=== PATIENT | female | born 1990 | race African-American/Black ===

== ENCOUNTER 2020-07-12 16:35 | Emergency (ER) | payer MEDICAID ==
[~2020-07-12] VITALS: Ht 160 cm; Wt 40.0 kg
--- NOTE | 2020-07-12 17:09 | ED.ADGEN ---
General Adult EDM: Chief Complaint: SUICDAL IDEATION HPI: HPI: Patient is a 30 year old female brought in by EMS for psychiatric evaluation. Patient states she has had suicidal ideations since noon today. Patient states it was triggered by her daughter being taken out of her home due to safety issues. Patient states she has 2 other children who live with her. Patient that she was thinking of cutting her wrists with a knife was tried a sharp event but unable to get [place]. Did not injure herself and has no wounds. Denies any ingestions. Patient states she has no psychiatric history up until 2 months ago. Patient states she had a suicide attempt by jumping out of a two- story window. Was seen at [facility] and discharged with a safety plan, given 1 dose of Risperdal. Patient has been following up with the guidance Center since then. Patient states she does not have any hallucinations but she does not feel like she knows who she is anymore. Has family history of depression, bipolar, schizophrenia and close feeling members including mother Review of Systems: Review of Systems: All other systems within normal limits except for as noted in the HPI Allergies: Allergies: Allergies Coded Allergies Type Severity Reaction Last Updated Verified No Known Drug Allergies 07/12/20 No Physical Exam: PE: Constitutional: Well developed, well nourished, no acute distress, non-toxic appearance. [] HENT: Normocephalic, atraumatic, bilateral external ears normal, nose normal. [] Eyes: PERRLA, conjunctiva normal, no discharge. [] Neck: No rigidity, supple, no stridor. [] Cardiovascular: Regular rate and rhythm, brisk cap refill [] Lungs & Thorax: Non labored symmetric respirations, no tachypnea or respiratory distress [] Abdomen: Soft, nondistended. Skin: Warm, dry, no erythema, no rash. [] Back: Unremarkable Extremities: No deformities, range of motion grossly intact, no lower extremity edema [] Neurologic: Alert and oriented X 3, no focal deficits noted. [] Psychologic: Affect normal, judgement normal, mood normal. [] Current Patient Data: Labs: Laboratory Tests Test 07/12/20 17:18 White Blood Count 4.9 x10^3/uL (4.0-11.0) Red Blood Count 3.95 x10^6/uL (3.50-5.40) Hemoglobin 12.0 g/dL (12.0-15.5) Hematocrit 36.6 % (36.0-47.0) Mean Corpuscular Volume 93 fL (79-100) Mean Corpuscular Hemoglobin 31 pg (25-35) Mean Corpuscular Hemoglobin Concent 33 g/dL (31-37) Red Cell Distribution Width 14.8 % (11.5-14.5) H Platelet Count 223 x10^3/uL (140-400) Neutrophils (%) (Auto) 35 % (31-73) Lymphocytes (%) (Auto) 54 % (24-48) H Monocytes (%) (Auto) 9 % (0-9) Eosinophils (%) (Auto) 2 % (0-3) Basophils (%) (Auto) 1 % (0-3) Neutrophils # (Auto) 1.7 x10^3/uL (1.8-7.7) L Lymphocytes # (Auto) 2.6 x10^3/uL (1.0-4.8) Monocytes # (Auto) 0.4 x10^3/uL (0.0-1.1) Eosinophils # (Auto) 0.1 x10^3/uL (0.0-0.7) Basophils # (Auto) 0.1 x10^3/uL (0.0-0.2) Sodium Level 144 mmol/L (136-145) Potassium Level 3.7 mmol/L (3.5-5.1) Chloride Level 105 mmol/L (98-107) Carbon Dioxide Level 27 mmol/L (21-32) Anion Gap 12 (6-14) Blood Urea Nitrogen 17 mg/dL (7-20) Creatinine 0.7 mg/dL (0.6-1.0) Estimated GFR (Cockcroft-Gault) 98.3 BUN/Creatinine Ratio 24 (6-20) H Glucose Level 90 mg/dL (70-99) Calcium Level 8.4 mg/dL (8.5-10.1) L Magnesium Level 2.1 mg/dL (1.8-2.4) Total Bilirubin 0.3 mg/dL (0.2-1.0) Aspartate Amino Transferase (AST) 14 U/L (15-37) L Alanine Aminotransferase (ALT) 25 U/L (14-59) Alkaline Phosphatase 52 U/L (46-116) Total Protein 6.9 g/dL (6.4-8.2) Albumin 3.9 g/dL (3.4-5.0) Albumin/Globulin Ratio 1.3 (1.0-1.7) Salicylates Level 3.6 mg/dL (2.8-20.0) Salicylate Last Dose Date Salicylate Last Dose Time Acetaminophen Level < 2 mcg/ml (10-30) L Acetaminophen Last Dose Date Acetaminophen Last Dose Time Ethyl Alcohol Level < 10 mg/dL (0-10) Laboratory Tests 07/12/20 17:18 Laboratory Tests 07/12/20 17:18 Vital Signs: Vital Signs Date Time Temp Pulse Resp B/P (MAP) Pulse Ox O2 Delivery O2 Flow Rate FiO2 07/12/20 18:15 61 16 110/76 (87) 100 Room Air 07/12/20 16:35 98.3 98.3 EKG: EKG: Sinus rhythm, heart rate 55 bpm, normal axis, no ST elevation depression, no ectopy, normal intervals. [] Heart Score: Risk Factors: Risk Factors: DM, Current or recent (<one month) smoker, HTN, HLP, family history of CAD, obesity. Risk Scores: Score 0 - 3: 2.5% MACE over next 6 weeks - Discharge Home Score 4 - 6: 20.3% MACE over next 6 weeks - Admit for Clinical Observation Score 7 - 10: 72.7% MACE over next 6 weeks - Early Invasive Strategies Radiology/Procedures: Radiology/Procedures: [] Course & Med Decision Making: Course & Med Decision Making Patient evaluated by PAT and would like to continue outpatient treatment. Has an appointment scheduled in 3 days with the guidance Center. Patient feel that she is not a harm to herself, discussed a short course of antianxiety medications as needed to help her with current symptoms. Patient would like to do that and we discussed safety plan. Patient states that she does not feel she is a harm to herself and to stay with her mother. Dragon Disclaimer: Dragon Disclaimer: This electronic medical record was generated, in whole or in part, using a voice recognition dictation system. Departure Departure Impression: Primary Impression: Suicidal ideation Disposition: 01 DC HOME SELF CARE/HOMELESS Condition: STABLE Patient Instructions: Suicidal Feelings, How to Help Yourself Additional Instructions: Follow-up with the guidance Center on Tuesday for your scheduled appointment, take antianxiety medications as needed. Return to emergency department if suicidal thoughts recur or you feel like you are a threat to yourself. Scripts Alprazolam (ALPRAZOLAM) 0.5 Mg Tablet 1 TAB PO TID PRN for ANXIETY / AGITATION for 5 Days, #10 TAB Prov: ANUP GALLARDO MD 07/12/20 ANUP GALLARDO MD Jul 12, 2020 17:09
[2020-07-12 17:31] LABS: BASO # 0.1 x10^3/uL (0.0-0.2); BASO % 1 % (0-3); EOS # 0.1 x10^3/uL (0.0-0.7); EOS % 2 % (0-3); HEMATOCRIT 36.6 % (36.0-47.0); LYMPH # 2.6 x10^3/uL (1.0-4.8); LYMPH % 54 % (24-48); MEAN CORPUSCULAR HEMOGLOBIN 31 pg (25-35); MEAN CORPUSCULAR HGB CONC 33 g/dL (31-37); MEAN CORPUSCULAR VOLUME 93 fL (79-100); MONO # 0.4 x10^3/uL (0.0-1.1); MONO % 9 % (0-9); NEUT # 1.7 x10^3/uL (1.8-7.7); NEUT % 35 % (31-73); PLATELET COUNT 223 x10^3/uL (140-400); RED BLOOD COUNT 3.95 x10^6/uL (3.50-5.40); RED CELL DISTRIBUTION WIDTH 14.8 % (11.5-14.5); WHITE BLOOD COUNT 4.9 x10^3/uL (4.0-11.0)
[2020-07-12 17:42] LABS: CALCIUM 8.4 mg/dL (8.5-10.1); CREATININE 0.7 mg/dL (0.6-1.0); GFR 98.3; POTASSIUM 3.7 mmol/L (3.5-5.1)
[2020-07-12 17:47] LABS: ACETAMIN < 2 mcg/ml (10-30); ALBUMIN 3.9 g/dL (3.4-5.0); ALBUMIN/GLOBULIN RATIO 1.3 (1.0-1.7); ETHANOL < 10 mg/dL (0-10); MAGNESIUM 2.1 mg/dL (1.8-2.4); SALIC 3.6 mg/dL (2.8-20.0); TOTAL BILIRUBIN 0.3 mg/dL (0.2-1.0); TOTAL PROTEIN 6.9 g/dL (6.4-8.2)
[2020-07-12] MEDS ORDERED: ALPR0.5T6 PO (17:48)
[2020-07-12 18:15] VITALS: BP 110/76
--- NOTE | 2020-07-12 19:07 | EKG ---
[facility] [address] [place] [address] Test Date: 2020-07-12 Test Time: 16:48:23 Pat Name: ANUP OLIVAREZ Department: Room: Gender: F Patient Monitor: : 1990 Requested By: ANUP GALLARDO Order Number: [id number] Reading MD: Measurements Intervals [place] Rate: 55 P: 52 WI: 146 QRS: 45 QRSD: 72 T: 28 QT: 408 QTc: 392 Interpretive Statements SINUS RHYTHM NORMAL ECG RI6.01 No previous ECG available for comparison
== END 2020-07-12 18:18 | disposition home or self-care (01) ==
LOC: ER 16:35
DX: R45.851 Suicidal ideations (principal)
CPT/HCPCS: 36415; 80053; 80329; 83735; 85025; 93005; 99285; G0480